=== PATIENT | male | born 1970 | race Caucasian/White ===

== ENCOUNTER 2023-11-19 12:52 | Outpatient (CLI) | payer OTHER | END 2023-11-19 12:53 | disposition home or self-care (01) | LOC: CSHWCC 12:52 | PROVIDERS: ATTEND Nurse Practitioner Family | DX: S31.102D Unspecified open wound of abdominal wall, epigastric region without penetration into peritoneal cavity, subsequent encounter (principal) | CPT/HCPCS: 11042; 11045 ==

== ENCOUNTER 2023-11-26 14:15 | Outpatient (CLI) | payer OTHER | END 2023-11-26 14:16 | disposition home or self-care (01) | LOC: CSHWCC 14:15 | PROVIDERS: ATTEND Nurse Practitioner Family | DX: S31.102D Unspecified open wound of abdominal wall, epigastric region without penetration into peritoneal cavity, subsequent encounter (principal) | CPT/HCPCS: 11042; 11045 ==

== ENCOUNTER 2023-12-08 15:25 | Outpatient (CLI) | payer OTHER | END 2023-12-08 15:26 | disposition home or self-care (01) | LOC: CSHWCC 15:25 | PROVIDERS: ATTEND Nurse Practitioner Family | DX: S31.102D Unspecified open wound of abdominal wall, epigastric region without penetration into peritoneal cavity, subsequent encounter (principal) | CPT/HCPCS: 11042 ==

== ENCOUNTER 2023-12-16 13:01 | Outpatient (CLI) | payer OTHER | END 2023-12-16 13:02 | disposition home or self-care (01) | LOC: CSHWCC 13:01 | PROVIDERS: ATTEND Nurse Practitioner Family | DX: S31.102D Unspecified open wound of abdominal wall, epigastric region without penetration into peritoneal cavity, subsequent encounter (principal) | CPT/HCPCS: 15271; 15272; Q4133 ==

== ENCOUNTER 2023-12-23 13:32 | Outpatient (CLI) | payer OTHER | END 2023-12-23 13:33 | disposition home or self-care (01) | LOC: CSHWCC 13:32 | PROVIDERS: ATTEND Nurse Practitioner Family | DX: S31.102D Unspecified open wound of abdominal wall, epigastric region without penetration into peritoneal cavity, subsequent encounter (principal) | CPT/HCPCS: 11042; 87070; 87205; 99213; G0463 ==

== ENCOUNTER 2023-12-31 14:25 | Outpatient (CLI) | payer OTHER | END 2023-12-31 14:26 | disposition home or self-care (01) | LOC: CSHWCC 14:25 | PROVIDERS: ATTEND Nurse Practitioner Family | DX: S31.102D Unspecified open wound of abdominal wall, epigastric region without penetration into peritoneal cavity, subsequent encounter (principal) | CPT/HCPCS: 15271; Q4133 ==

== ENCOUNTER 2024-01-07 12:43 | Outpatient (CLI) | payer OTHER | END 2024-01-07 12:44 | disposition home or self-care (01) | LOC: CSHWCC 12:43 | PROVIDERS: ATTEND Nurse Practitioner Family | DX: S31.102D Unspecified open wound of abdominal wall, epigastric region without penetration into peritoneal cavity, subsequent encounter (principal) | CPT/HCPCS: 15271; Q4133 ==

== ENCOUNTER 2024-01-22 10:00 | Outpatient (CLI) | payer OTHER | END 2024-01-22 10:01 | disposition home or self-care (01) | LOC: CSHWCC 10:00 | PROVIDERS: ATTEND Nurse Practitioner Family | DX: S31.102D Unspecified open wound of abdominal wall, epigastric region without penetration into peritoneal cavity, subsequent encounter (principal) | CPT/HCPCS: 15271; Q4133 ==

== ENCOUNTER 2024-01-29 08:14 | Outpatient (CLI) | payer OTHER | END 2024-01-29 08:15 | disposition home or self-care (01) | LOC: CSHWCC 08:14 | PROVIDERS: ATTEND Family Medicine | DX: S31.102D Unspecified open wound of abdominal wall, epigastric region without penetration into peritoneal cavity, subsequent encounter (principal) | CPT/HCPCS: 15271; Q4133 ==

== ENCOUNTER 2024-02-05 12:52 | Outpatient (CLI) | payer OTHER | END 2024-02-05 12:53 | disposition home or self-care (01) | LOC: CSHWCC 12:52 | PROVIDERS: ATTEND Nurse Practitioner Family | DX: S31.102D Unspecified open wound of abdominal wall, epigastric region without penetration into peritoneal cavity, subsequent encounter (principal) | CPT/HCPCS: 15271; Q4133 ==

== ENCOUNTER → 2024-02-12 | Outpatient (CLI) | payer OTHER | LOC: CSHWCC 09:00 | PROVIDERS: ATTEND Nurse Practitioner Family | DX: S31.102D Unspecified open wound of abdominal wall, epigastric region without penetration into peritoneal cavity, subsequent encounter (principal) | CPT/HCPCS: 15271; Q4133 ==

== ENCOUNTER 2024-02-19 10:33 | Outpatient (CLI) | payer OTHER | END 2024-02-19 10:34 | disposition home or self-care (01) | LOC: CSHWCC 10:33 | PROVIDERS: ATTEND Nurse Practitioner Family | DX: S31.102D Unspecified open wound of abdominal wall, epigastric region without penetration into peritoneal cavity, subsequent encounter (principal) | CPT/HCPCS: 15271; Q4133 ==

== ENCOUNTER 2024-02-29 11:31 | Outpatient (CLI) | payer OTHER | END 2024-02-29 11:32 | disposition home or self-care (01) | LOC: CSHWCC 11:31 | PROVIDERS: ATTEND Nurse Practitioner Family | DX: S31.102D Unspecified open wound of abdominal wall, epigastric region without penetration into peritoneal cavity, subsequent encounter (principal) | CPT/HCPCS: 15271; Q4133 ==

== ENCOUNTER 2024-03-07 13:23 | Outpatient (CLI) | payer OTHER | END 2024-03-07 13:24 | disposition home or self-care (01) | LOC: CSHWCC 13:23 | PROVIDERS: ATTEND Nurse Practitioner Family | DX: S31.102D Unspecified open wound of abdominal wall, epigastric region without penetration into peritoneal cavity, subsequent encounter (principal) | CPT/HCPCS: 97597; 99212; G0463 ==

== ENCOUNTER 2024-03-21 13:38 | Outpatient (CLI) | payer OTHER | END 2024-03-21 13:39 | disposition home or self-care (01) | LOC: CSHWCC 13:38 | PROVIDERS: ATTEND Nurse Practitioner Family | DX: S31.102D Unspecified open wound of abdominal wall, epigastric region without penetration into peritoneal cavity, subsequent encounter (principal) | CPT/HCPCS: 15271; Q4133 ==

== ENCOUNTER 2024-09-13 09:56 | Outpatient (CLI) | payer OTHER | END 2024-09-13 09:57 | disposition home or self-care (01) | LOC: CSHWCC 09:56 | PROVIDERS: ATTEND Nurse Practitioner Family | DX: S31.102D Unspecified open wound of abdominal wall, epigastric region without penetration into peritoneal cavity, subsequent encounter (principal) | CPT/HCPCS: 11042 ==

== ENCOUNTER 2024-09-27 12:45 | Outpatient (CLI) | payer OTHER | END 2024-09-27 12:46 | disposition home or self-care (01) | LOC: CSHWCC 12:45 | PROVIDERS: ATTEND Nurse Practitioner Family | DX: S31.102D Unspecified open wound of abdominal wall, epigastric region without penetration into peritoneal cavity, subsequent encounter (principal) | CPT/HCPCS: 11042 ==

== ENCOUNTER 2024-10-11 10:46 | Outpatient (CLI) | payer OTHER | END 2024-10-11 10:47 | disposition home or self-care (01) | LOC: CSHWCC 10:46 | PROVIDERS: ATTEND Nurse Practitioner Family | DX: S31.102D Unspecified open wound of abdominal wall, epigastric region without penetration into peritoneal cavity, subsequent encounter (principal) | CPT/HCPCS: 11042 ==

== ENCOUNTER 2024-11-08 11:37 | Outpatient (CLI) | payer OTHER | END 2024-11-08 11:38 | disposition home or self-care (01) | LOC: CSHWCC 11:37 | PROVIDERS: ATTEND Nurse Practitioner Family | DX: S31.102D Unspecified open wound of abdominal wall, epigastric region without penetration into peritoneal cavity, subsequent encounter (principal) | CPT/HCPCS: 11042 ==

== ENCOUNTER 2024-11-16 11:02 | Outpatient (CLI) | payer OTHER | END 2024-11-16 11:03 | disposition home or self-care (01) | LOC: CSHWCC 11:02 | PROVIDERS: ATTEND Nurse Practitioner Family | DX: S31.102D Unspecified open wound of abdominal wall, epigastric region without penetration into peritoneal cavity, subsequent encounter (principal) | CPT/HCPCS: 11042 ==

== ENCOUNTER 2025-01-11 10:21 | Outpatient (CLI) | payer OTHER | END 2025-01-11 10:22 | disposition home or self-care (01) | LOC: CSHWCC 10:21 | PROVIDERS: ATTEND Nurse Practitioner Family | DX: S31.102D Unspecified open wound of abdominal wall, epigastric region without penetration into peritoneal cavity, subsequent encounter (principal) | CPT/HCPCS: 99213; G0463 ==